=== PATIENT | female | born 1935 | race Caucasian/White ===

== ENCOUNTER → 2019-03-28 | Outpatient (CLI) | payer OTHER, BC ==
[~2019-03-28] MED LIST: COUMADIN 5 MG TA5 M1 PO; HUMALOG PE100 UNIT/1; HUMALOG PE100 UNIT/M SUBQ; HYZAAR 100-251 EACH PO; LANTUS SQ; SYNTHROID50 MCG PO; UNKNOWN PAIN MED; VITAMIN D400 UNI1 PO; ZOLOFT PO; ZOLOFT25 MG PO; [UNRECOGNIZED DRUG - REMARK]
== END ==
LOC: ULTRA 16:07
DX: M71.22 Synovial cyst of popliteal space [Baker], left knee (principal); R60.9 Edema, unspecified; Z86.718 Personal history of other venous thrombosis and embolism

== ENCOUNTER 2019-07-14 10:51 | Emergency (ER) | payer OTHER, BC ==
[~2019-07-14] VITALS: Ht 149.9 cm; Wt 72.1 kg
[2019-07-14 11:15] LABS: ABSOLUTE NEUTROPHILS 6.7 thou/uL (1.4-8.2); BASOPHILS 0.5 % (0.0-2.0); EOSINOPHILS 1.3 % (0.0-3.0); HEMATOCRIT 36.9 % (37.0-47.0); HEMOGLOBIN 11.9 gm/dL (12.0-15.0); LYMPHOCYTES 17.6 % (24.0-44.0); MCH 28.9 pg (26.0-34.0); MCHC 32.2 g/dL (28.0-37.0); MCV 89.9 fL (80.0-100.0); MONOCYTES 7.7 % (1.0-8.0); PLATELET COUNT 154 thou/uL (150-400); POLYS 72.9 % (36.0-66.0); RBC 4.11 mil/uL (4.20-5.00); RDW 14.7 % (10.5-14.5); WBC 9.2 thou/uL (4.0-11.0)
[2019-07-14 11:23] LABS: ANION GAP 12 mmol/L (7-16); BUN 23 mg/dL (7-18); CALCIUM 8.4 mg/dL (8.5-10.1); CHLORIDE 101 mmol/L (98-107); CO2 24 mmol/L (21-32); CREATININE 1.4 mg/dL (0.6-1.0); GLUCOSE 246 mg/dL (74-106); POTASSIUM 3.7 mmol/L (3.5-5.1); SODIUM 137 mmol/L (136-145)
[2019-07-14 11:25] LABS: APTT 38.7 Seconds (24.5-32.8); PROTIME 30.6 Seconds (9.3-11.4)
[2019-07-14 11:32] LABS: ALBUMIN 3.3 g/dL (3.4-5.0); SGOT 22 U/L (15-37); SGPT 17 U/L (30-65); TOTAL BILIRUBIN 0.5 mg/dL (<0.1-1.0); TOTAL PROTEIN 6.9 g/dL (6.4-8.2); TROPONIN-I <0.06 ng/mL (<0.06)
[2019-07-14] MEDS ORDERED: HUMALOG100 UNIT/1 SUBQ (11:40)
[2019-07-14 11:42] LABS: LARGE PLATELETS FEW
[2019-07-14] MEDS ORDERED: LIPITOR20 MG PO (11:42)
[2019-07-14] MEDS ORDERED: CALCIUM500 MG PO (11:42)
[2019-07-14] MEDS ORDERED: NORCO 5-325 TA1 EAC1 PO (11:42)
[2019-07-14 12:45] VITALS: BP 146/72
--- NOTE | 2019-07-14 13:58 | EKG ---
[place] [address] [facility] [place] [address] ELECTROCARDIOGRAM REPORT Name: MOMO BECKMAN [id number] Admission: 07/14/19 Attend Phys: Discharge: 07/14/19 Date of : 35 Report #: [id number] THIS REPORT FOR: //name// [facility] ED Test Date: 2019-07-14 Test Time: 11:14:03 Pat Name: MOMO BECKMAN Department: Room: Gender: F Grocery Cashier: BOB : 1935 Requested By: Janessa Robles Order Number: [id number] MD: Navdeep Moyer Measurements Intervals [place] Rate: 104 P: 42 TN: 190 QRS: 22 QRSD: 96 T: -10 QT: 368 QTc: 484 Interpretive Statements Sinus tachycardia Borderline T abnormalities, inferior leads Compared to ECG 11/30/2006 10:48:28 T-wave abnormality now present Sinus rhythm no longer present Poor R-wave progression no longer present Electronically Signed On 07-14-2019 13:57:37 [employer] by Navdeep Moyer [email or web address] <ELECTRONICALLY SIGNED> By: Navdeep Moyer MD 07/14/19 1357 1114 1114 Navdeep Moyer MD /EPI
== END 2019-07-14 12:46 | disposition home or self-care (01) ==
LOC: ER 10:51
PROVIDERS: Physician Assistant
DX: M25.432 Effusion, left wrist (principal); E11.9 Type 2 diabetes mellitus without complications; Z96.651 Presence of right artificial knee joint; Z79.899 Other long term (current) drug therapy

== ENCOUNTER 2020-10-19 21:36 | Emergency (ER) | payer OTHER, BC ==
[~2020-10-19] VITALS: Ht 149.9 cm; Wt 73.9 kg
[~2020-10-19 21:36] MED LIST changes: +CALCIUM500 MG PO; +HUMALOG100 UNIT/1 SUBQ; +LIPITOR20 MG PO; +NORCO 5-325 TA1 EAC1 PO
[2020-10-19] MEDS ORDERED: HYDROCHLOROTH12.5 M2 PO (21:46)
[2020-10-19] MEDS ORDERED: VALSARTAN40 MG PO (21:47)
[2020-10-19] MEDS ORDERED: LEVOTHYROXINE50 MCG PO (21:47)
[2020-10-19 22:11] LABS: URINE BILIRUBIN NEGATIVE (Negative); URINE BLOOD NEGATIVE (Negative); URINE CLARITY CLEAR; URINE COLOR YELLOW; URINE GLUCOSE-RANDOM* TRACE (Negative); URINE KETONES NEGATIVE (Negative); URINE NITRITE-REFLEX NEGATIVE (Negative); URINE PROTEIN (DIPSTICK) NEGATIVE (Negative); URINE SPECIFIC GRAVITY 1.025 (1.005-1.035); URINE UROBILINOGEN 0.2 E.U./dl (0.2-1.0)
[2020-10-19 22:12] LABS: ABSOLUTE NEUTROPHILS 3.9 thou/uL (1.4-8.2); BASOPHILS 0.4 % (0.0-2.0); EOSINOPHILS 2.9 % (0.0-3.0); HEMATOCRIT 35.5 % (37.0-47.0); HEMOGLOBIN 11.5 gm/dL (12.0-15.0); LYMPHOCYTES 41.3 % (24.0-44.0); MCH 29.9 pg (26.0-34.0); MCHC 32.4 g/dL (28.0-37.0); MCV 92.5 fL (80.0-100.0); MONOCYTES 8.8 % (1.0-8.0); PLATELET COUNT 193 thou/uL (150-400); POLYS 46.6 % (36.0-66.0); RBC 3.84 mil/uL (4.20-5.00); RDW 15.1 % (10.5-14.5); WBC 8.3 thou/uL (4.0-11.0)
[2020-10-19 22:18] LABS: CALCIUM 9.1 mg/dL (8.5-10.1); CREATININE 1.5 mg/dL (0.6-1.0); POTASSIUM 4.2 mmol/L (3.5-5.1)
[2020-10-19 22:27] LABS: APTT 25.9 Seconds (24.5-32.8); INR 1.29; PROTIME 13.9 Seconds (9.3-11.4)
[2020-10-19 22:29] LABS: URINE LEUKOCYTES-REFLEX 1+ (Negative)
[2020-10-19 22:30] VITALS: BP 129/53
[2020-10-19 22:31] LABS: MUCUS 0-3 Light strn/LPF (None Seen); SQUAMOUS 0-3 Few /LPF (0-3); TRANSITIONAL EPITHEL CELL 0-3 Few /LPF (None Seen)
[2020-10-19 22:32] LABS: BACTERIA-REFLEX 1-9 Few /HPF (None Seen); CRYSTALS None Seen /LPF (None Seen); FINE GRANULAR CASTS 0-3 Few /LPF (None Seen); HYALINE CASTS 0-3 Few /LPF (None Seen); URINE RBC 1-2 Rare /HPF (NONE SEEN); URINE WBC-REFLEX 6-15 Few /HPF (0-5)
== END 2020-10-19 22:30 | disposition home or self-care (01) ==
LOC: ER 21:36
PROVIDERS: Nurse Practitioner
DX: S01.01XA Laceration without foreign body of scalp, initial encounter (principal); E11.9 Type 2 diabetes mellitus without complications; Z88.0 Allergy status to penicillin; Z79.899 Other long term (current) drug therapy; Z79.01 Long term (current) use of anticoagulants; Z86.718 Personal history of other venous thrombosis and embolism; Z86.711 Personal history of pulmonary embolism; W18.09XA Striking against other object with subsequent fall, initial encounter; Y93.89 Activity, other specified; Y92.89 Other specified places as the place of occurrence of the external cause; Y99.9 Unspecified external cause status